=== PATIENT | female | born 1960 | race Caucasian/White ===

== ENCOUNTER 2024-10-28 07:34 | Day surgery (SDC) | payer OTHER ==
[~2024-10-28 07:34] MED LIST: SODIUM CHLORIDE 0.9% 1,000 ML ONE
[2024-10-28] MEDS: SODIUM CHLORIDE 0.9% 1,000 ML IV ONE (08:44)
[2024-10-28 08:45] LABS: GLUCOMETER DEV NAME(LOC) SDS.; GLUCOSE,POINT OF CARE 179 MG/DL (70-110)
[2024-10-28] MEDS ORDERED: GLYCOPYRROLATE 0.2 MG/ML VIAL ONE (18:00)
[2024-10-28] MEDS ORDERED: PROPOFOL 1% 20 ML VIAL IVP ONE (18:00)
== END 2024-10-28 11:00 | disposition home or self-care (01) ==
LOC: SURGERY 07:34
PROVIDERS: ATTEND Internal Medicine Gastroenterology
DX: Z12.11 Encounter for screening for malignant neoplasm of colon (principal); K63.5 Polyp of colon; I25.2 Old myocardial infarction; E11.9 Type 2 diabetes mellitus without complications; Z79.84 Long term (current) use of oral hypoglycemic drugs; Z79.899 Other long term (current) drug therapy
CPT/HCPCS: 82962; 88305; 45385; J2704; J3490; J7030